=== PATIENT | female | born 1990 | race Caucasian/White ===

== ENCOUNTER 2019-02-26 19:48 | Emergency (ER) | payer OTHER ==
[~2019-02-26] VITALS: Ht 175.3 cm; Wt 113.4 kg
[~2019-02-26 19:48] MED LIST: ALPRAZOLAM PO; COLACE100 MG; HYDROCODON-ACE1 EAC7; IBUPROFEN 800800 M1; Magic Mouthwash PO; PARAGARD T 3801 EAC1; PAXIL20 MG PO; VOL-TAB RX TAB1 EACH; XANAX 0.25 MG0.25 MG PO
[2019-02-26 21:08] LABS: URINE BILIRUBIN NEGATIVE (Negative); URINE BLOOD NEGATIVE (Negative); URINE CLARITY CLEAR; URINE COLOR YELLOW; URINE GLUCOSE-RANDOM* NEGATIVE (Negative); URINE KETONES NEGATIVE (Negative); URINE NITRITE-REFLEX NEGATIVE (Negative); URINE PROTEIN (DIPSTICK) NEGATIVE (Negative); URINE UROBILINOGEN 0.2 E.U./dl (0.2-1.0)
[2019-02-26 21:12] LABS: URINE LEUKOCYTES-REFLEX 3+ (Negative)
[2019-02-26 21:18] LABS: AMP/METHAMP Negative (Negative); BARBITURATES Negative (Negative); BENZODIAZEPINES Negative (Negative); COCAINE Negative (Negative); METHADONE Negative (Negative); OPIATES Negative (Negative); PCP Negative (Negative)
[2019-02-26 21:21] LABS: CASTS None Seen /LPF (None Seen); CRYSTALS None Seen /LPF (None Seen); SQUAMOUS 0-3 Few /LPF (0-3)
[2019-02-26 21:22] LABS: URINE RBC None Seen /HPF (0-2)
[2019-02-26] MEDS ORDERED: MACROBID 100 M100 M1 PO (21:48)
[2019-02-26] MEDS ORDERED: METHOCARBAMOL500 M2 PO (21:48)
[2019-02-26] MEDS ORDERED: NAPROSYN500 MG PO (21:48)
[2019-02-26 22:00] VITALS: BP 162/81
== END 2019-02-26 22:00 | disposition home or self-care (01) ==
LOC: ER 19:48
PROVIDERS: Emergency Medicine
DX: N39.0 Urinary tract infection, site not specified (principal); F17.210 Nicotine dependence, cigarettes, uncomplicated; Z89.022 Acquired absence of left finger(s); Z86.73 Personal history of transient ischemic attack (TIA), and cerebral infarction without residual deficits; Z88.6 Allergy status to analgesic agent; Z88.1 Allergy status to other antibiotic agents; Z88.2 Allergy status to sulfonamides; Z88.0 Allergy status to penicillin; Z88.5 Allergy status to narcotic agent; Z88.8 Allergy status to other drugs, medicaments and biological substances